=== PATIENT | male | born 1965 ===

== ENCOUNTER 2024-04-24 03:12 | Emergency (ER) | payer MEDICAID, SELFPAY ==
[2024-04-24] VITALS (33 sets, daily range): BP systolic 153–178; BP diastolic 90–120; PULSE 85–109; RESP 11–39; TEMP 36.8; O2SAT 94–99
--- NOTE | 2024-04-24 03:09 | W.ED.GENAD ---
Discharge Plan Disposition Condition: Stable Discharge Details Chief Complaint: GenMedical Clinical Impression: Bilateral leg weakness, Distal paresthesia, Areflexia Primary Care Provider: Unknown,Unknown ED Provider: Thomas Seay Home Meds and New Rx's Prescriptions: No Action No Known Home Meds [facility] General Mode of arrival: EMS. Date/Time Provider Initiated Documentation: 04/24/24 03:34. Limitations to Documentation: no limitations. Information obtained by: patient and RN notes reviewed. HPI Narrative: Patient presenting to ED with complaint of numbness and tingling as well as weakness mostly in his lower extremities. Patient reports something similar to this from [id number]. However, at that time he only experienced sensory changes, never weakness. Symptoms resolved and it was chalked up to neuropathy, no definite etiology. He has not seen a physician since that time. As far as he knows he has no significant past medical history. A couple of days before he started to have tingling in his hands. Since that time he has developed tingling in his upper extremities to about the elbows. He developed tingling and now has decreased sensation in his lower extremities up to his knees. Over the last few days he is developed weakness more prominent in his lower extremities than his upper extremities. He is also reporting numbness involving the head of the penis, decreased urine strength, decreased ability to push to have a bowel movement. He has had 4 falls without injury due to leg weakness. Left leg is weaker than right leg. 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 He has also noticed truncal weakness and is unable to get himself up from the stretcher to a sitting position without using his arms. He denies any headache or neck pain. He does have midthoracic spine pain which began around the same time as the tingling in his hands. He denies chest pain, shortness of breath, abdominal pain, vomiting. He has had no fever or cough. Denies any type of URI symptoms or viral symptoms in the last month. Related Data Home Medications ?Medication ?Instructions ?Recorded ?Confirmed Unknown [No Known Home Meds] 11/06/14 04/24/24 Allergies Allergy/AdvReac Type Severity Reaction Status Date / Time acetaminophen (From Tylenol) AdvReac Intermediate shakes Verified 04/24/24 03:29 Review of Systems Narrative: per HPI Exam Narrative Exam Narrative: Const: Thin male in NAD. VS per triage. HEENT: NC/AT. Normal facial exam. Neck: Supple. Trachea midline. Normal ROM. No midline posterior tenderness. Lungs: Normal respiratory effort. Lungs are clear. Cor: RRR without murmur. Good distal pulses. GI: Soft/ND/NT. Back: Tender mid thoracic spine. Neuro: A+O x 3. Normal speech, mentation. Cranial nerves II - XII grossly intact. Decrease sensation distal LE. Paresthesias distal upper extremities. Strong plantarflexion bilaterally. Weak dorsi flexion bilaterally. Strong knee extension bilaterally. Very weak knee flexion bilaterally. Weak hip flexion. Unable to sit up on his own, must use upper extremities to do so. Gait not tested. Left leg does seem more involved than right. Bilateral upper extremities with symmetric very mild weakness. Ext: No C/C/E. Feet cold but pulse present. Medical Decision Making Patient presenting to ED with about a weeks worth of progressive neurologic symptoms that are mostly affecting the lower extremities, some mild changes to the upper extremities. He has significant weakness in the hip flexes, knee flexors, ankle flexes. Extensor muscles appear to be pretty normal. Sensation is decreased but not absent in the distal lower extremities. Feet are very cold but pulses are present. Upper extremities have paresthesias distally and some mild symmetric weakness only noted on testing. He has mid thoracic pain and tenderness. No injuries and pain present prior to any of his falls. Differential includes spinal lesion, GBS, autoimmune process. Will obtain laboratory studies and CT of the spine. Patient likely will require transfer to tertiary care for further evaluation and management given progression of symptoms. 06:00 - Patient's labs are unremarkable. He has a normal white count and hemoglobin, normal chemistries, kidney function, liver function, TSH. Bladder scan with 130 mL of urine present. CT scan of the spine with no acute fracture, significant degenerative change, no overt lesions or masses. I still suspect that this may be a spinal process. Definitely involve lower extremities much more so than the upper extremities. Also seems to affect the flexor muscle groups as opposed to extensor. Will ask for telemetry neurology consult from [facility] for further insight and recommendations. 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 I had not checked patient reflexes but after discussion with neurology patient found to be areflexic. After discussion with neurology decision to transfer to higher level of care is felt best for the patient. I have placed a call to [facility]. Both neurology and myself have had discussion regarding probable diagnosis and need for transfer with the patient. 08:00 - Patient remains stable. Waiting for call back from [facility]. Will sign out to oncoming ED physician pending callback. If [facility] unable to accept will need to continue calls to surrounding tertiary care facilities. Lab Data Lab results reviewed: Yes I reviewed the patient's lab results. Lab results narrative: see MDM Quality:SDOH Health Related Social Needs: Health related social needs housing instability, housed, with risk of homelessness(Z59.811), inadequate housing(Z59.1) PFSH All Active Problems (Updated 04/24/24 @ 08:00 by Thomas Seay MD) Areflexia (Acute) Distal paresthesia (Acute) Bilateral leg weakness (Acute) Family History Father , Heart failure at age 68. Heart disease Social History Smoking/Tobacco Use Status: Former Tobacco Use Smoking risk assessment performed?: Yes Alcohol Intake: current Drug use: Never Substance use type: does not use
[2024-04-24 03:50] LABS: Abs Immature Grans 0.01 10^3/uL (0.0-0.06); Absolute Basophil Count 0.02 10^3/uL (0.0-0.2); Absolute Eosinophil Count 0.01 10^3/uL (0.0-0.7); Absolute Lymphocyte Count 1.09 10^3/uL (1.2-3.4); Absolute Monocyte Count 0.71 10^3/uL (0.1-0.8); Absolute Neutrophil Count 4.25 10^3/uL (1.2-6.7); Basophils % 0.3 %; Eosinophils % 0.2 %; HCT 47.5 % (40.0-50.0); HGB 15.8 g/dL (13.5-17.5); Immature Grans % 0.2 %; Lymphocytes % 17.9 %; MCH 29.8 pg (27.0-33.0); MCHC 33.3 % (32.0-36.0); MCV 90 fL (80-95); MPV 11.2 fL (8.0-11.0); Monocytes % 11.7 %; Neutrophils % 69.7 %; Platelet Count 218 10^3/uL (130-400); RDW 12.1 % (11.8-14.1); RDW-SD 39.8 fL; WBC 6.09 10^3/uL (4.4-10.8)
[2024-04-24 04:11] LABS: ALT 26 U/L (16-63); AST 28 U/L (15-37); Albumin 4.3 g/dL (3.4-5.0); Alkaline Phosphatase 101 U/L (46-116); Anion Gap 7.7 mmol/L (3-11); BUN 10 mg/dL (7-18); Bilirubin, Total 0.92 mg/dL (0.2-1.0); CO2 29.3 mmol/L (21.0-32.0); CREATININE 0.8 mg/dL (0.70-1.30); Calcium 9.5 mg/dL (8.5-10.1); Chloride 103 mmol/L (98-107); Estimated GFR 100.69 (mL/min/1.73m2); Glucose 97 mg/dL (74-106); Potassium 3.6 mmol/L (3.5-5.1); Sodium 140 mmol/L (136-145); TSH (W/Ref FT4) 1.14 uIU/mL (0.36-3.74); Total Protein 8.5 g/dL (6.4-8.2)
--- NOTE | 2024-04-24 04:16 | DI.CT_ITS ---
Exam(s) CT CERVICAL SPINE WO EXAM: CT CERVICAL SPINE WO CLINICAL HISTORY: numbness/weakness BLE, tingling BUE. TECHNIQUE: Imaging Protocol: Axial computed tomography images with coronal and sagittal reformatted images were created and reviewed CONTRAST MATERIAL: Noncontrast COMPARISON: No exams were available for comparison FINDINGS: Bones: No fracture or dislocations are seen. The alignment of the cervical spine is normal including the cervicovertebral junction and cervicothoracic junction. Mild narrowing of the C5-6 disc space. Moderate to severe narrowing of the C6-7 disc space. There a re degenerative disc changes and facet degenerative changes causing bilateral neural foraminal narrow ing at C5-6 and C6-7. Soft Tissues: The soft tissues of the neck are unremarkable. No large disk herniations are identified . The visualized portions of the lung apices are clear. No pneumothorax is seen. IMPRESSION: Bilateral foraminal narrowing C5-6 C6-7 secondary to degenerative facet and disc changes. RADIATION DOSE DELIVERED: Total DLP DATA REPOSITORY: All CT scans at this facility are submitted to the National Radiology Data Registry (NRDR) Dose Index Registry (DIR) with the [employer] ([employer]). RADIATION OPTIMIZATION: All CT scans at this facility use at least one of these dose optimization te chniques: automated exposure control; mA and/or kV adjustment per patient size (includes targeted exa ms where dose is matched to clinical indication); or iterative reconstruction.
--- NOTE | 2024-04-24 04:18 | DI.CT_ITS ---
Exam(s) CT THORACIC LUMBAR SPINE WO EXAM: CT THORACIC LUMBAR SPINE WO CLINICAL HISTORY: mid back pain, numbness/weakness BLE, tingling BUE. TECHNIQUE: Imaging Protocol: Axial, coronal and sagittal images of the thoracic and lumbar spine wer e reconstructed utilizing bone and soft tissue algorithm. COMPARISON: CT LUMBAR SPINE WITHOUT CONTRAST from 11/06/2014 FINDINGS: Thoracic spine: Bones: No acute fractures are seen. The alignment of the spine is normal including the cervicothora cic junction. Minimal degenerative changes. No central canal stenosis. Soft tissues: The soft tissues of the chest are unremarkable. No large disk herniations are identifie d. Lumbar spine: Bones: No acute fracture is identified. Minimal disc bulging at L4-5 and L5-S1. No central canal s tenosis. Question mild bilateral neural foraminal narrowing at L4-5. Alignment: Normal. Soft tissues: There is no large disc herniation. No paraspinal hematoma. Bilateral simple renal cys ts. No follow-up recommended. Appendix appears normal. IMPRESSION: No acute abnormality of the thoracic or lumbar spine. Mild degenerative disc changes L4-5. RADIATION DOSE DELIVERED: Total DLP DATA REPOSITORY: All CT scans at this facility are submitted to the National Radiology Data Registry (NRDR) Dose Index Registry (DIR) with the [employer] (ACR). RADIATION OPTIMIZATION: All CT scans at this facility use at least one of these dose optimization te chniques: automated exposure control; mA and/or kV adjustment per patient size (includes targeted exa ms where dose is matched to clinical indication); or iterative reconstruction.
--- NOTE | 2024-04-24 05:40 | DI.VRAD_ITS ---
PROCEDURE INFORMATION: Exam: CT Cervical Spine Without Contrast Exam date and time: 04/24/2024 3:50 AM Age: 59 years old Clinical indication: Other: Numbness/weakness ble, tingling bue TECHNIQUE: Imaging protocol: Computed tomography of the cervical spine without contrast. COMPARISON: No relevant prior studies available. FINDINGS: Bones: No acute fracture. There is multilevel degenerative disc disease and bilateral uncovertebral and facet arthropathy causing bilateral neural foraminal narrowing most prominent at C5-C7. No significant spinal canal stenosis. Lungs: Lung apices are normal. Soft tissues: Unremarkable. IMPRESSION: No acute fracture. Multilevel degenerative changes as described. Dictated and Authenticated by: Sandra May MD. Ordering:ARCHIE Guzman MD
--- NOTE | 2024-04-24 05:48 | DI.VRAD_ITS ---
PROCEDURE INFORMATION: Exam: CT Thoracic Spine Without Contrast Exam date and time: 04/24/2024 4:03 AM Age: 59 years old Clinical indication: Mid back pain, numbness/weakness ble, tingling bue TECHNIQUE: Imaging protocol: Computed tomography of the thoracic spine without contrast. COMPARISON: CT CERVICAL SPINE WO 04/24/2024 3:50 AM FINDINGS: Bones/joints: No acute fracture. There is slight exaggerationof the thoracic kyphosis. No significant disc bulge or herniation. No severe spinal canal stenosis. No significant neural foraminal narrowing. Soft tissues: Unremarkable. IMPRESSION: No acute fracture or listhesis. PROCEDURE INFORMATION: Exam: CT Lumbar Spine Without Contrast Exam date and time: 04/24/2024 4:03 AM Age: 59 years old Clinical indication: Mid back pain, numbness/weakness ble, tingling bue TECHNIQUE: Imaging protocol: Computed tomography of the lumbar spine without contrast. COMPARISON: No relevant prior studies available. FINDINGS: Bones/joints: No acute fracture. Normal alignment. mild disc bulging noted at l4-l5 causing mild bilateral neural foraminal narrowing. No severe spinal canal stenosis. Kidneys and ureters: Bilateral renal cysts are partially visualized. Soft tissues: Unremarkable. IMPRESSION: No acute fracture. Mild degenerative changes as described. Dictated and Authenticated by: Sandra May MD. Ordering:ARCHIE Guzman MD
--- NOTE | 2024-04-24 08:48 | W.EDPROG ---
Date of service: 04/24/24 Time of Service: 08:48 Medical Decision Making Care signed out by Dr. Seay with plan to follow-up with conversation with neurologist at [facility] regarding transfer. I spoke with Dr. Rutherford, on-call neurology at [facility], discussed ED presentation course, she reviewed teleneuro note, she will accept the patient in transfer to the emergency department at [facility]. Patient provided verbal consent to transfer. Lab Data Lab results reviewed: Yes I reviewed the patient's lab results. Labs: Laboratory Tests Range/Units 04/24/24 03:39 WBC (4.4-10.8) 10^3/uL 6.09 RBC (4.36-5.78) 10^6/uL 5.30 Hgb (13.5-17.5) g/dL 15.8 Hct (40.0-50.0) % 47.5 MCV (80-95) fL 90 MCH (27.0-33.0) pg 29.8 MCHC (32.0-36.0) % 33.3 RDW (11.8-14.1) % 12.1 Plt Count (130-400) 10^3/uL 218 MPV (8.0-11.0) fL 11.2 H Immature Gran % % 0.2 Neutrophils % % 69.7 Lymphocytes % % 17.9 Monocytes % % 11.7 Eosinophils % % 0.2 Basophils % % 0.3 Nucleated RBC % (0.0-0.3) % 0.0 Absolute Neutrophils (1.2-6.7) 10^3/uL 4.25 Absolute Lymphocytes (1.2-3.4) 10^3/uL 1.09 L Absolute Monocytes (0.1-0.8) 10^3/uL 0.71 Absolute Eosinophils (0.0-0.7) 10^3/uL 0.01 Absolute Basophils (0.0-0.2) 10^3/uL 0.02 Sodium (136-145) mmol/L 140 Potassium (3.5-5.1) mmol/L 3.6 Chloride (98-107) mmol/L 103 Carbon Dioxide (21.0-32.0) mmol/L 29.3 Anion Gap (3-11) mmol/L 7.7 BUN (7-18) mg/dL 10 Creatinine (0.70-1.30) mg/dL 0.8 Est GFR (CKD-EPI 2020) (mL/min/1.73m2) 100.69 Glucose (74-106) mg/dL 97 Calcium (8.5-10.1) mg/dL 9.5 Magnesium (1.8-2.4) mg/dL 2.0 Total Bilirubin (0.2-1.0) mg/dL 0.92 AST (15-37) U/L 28 ALT (16-63) U/L 26 Alkaline Phosphatase (46-116) U/L 101 Total Protein (6.4-8.2) g/dL 8.5 H Albumin (3.4-5.0) g/dL 4.3 TSH (0.36-3.74) uIU/mL 1.14 Quality:SDOH Health Related Social Needs: Health related social needs housing instability, housed, with risk of homelessness(Z59.811), inadequate housing(Z59.1) Discharge Plan Disposition Patient Disposition: Transfer-Acute Inpatient Care Specific Acute In Facility: [facility] Condition: Stable Discharge Details Chief Complaint: GenMedical Clinical Impression: Bilateral leg weakness, Distal paresthesia, Areflexia Primary Care Provider: Unknown,Unknown ED Provider: Thomas Seay Home Meds and New Rx's Prescriptions: No Action No Known Home Meds
== END 2024-04-24 09:33 | disposition short-term general hospital (02) ==
PROVIDERS: Emergency Medicine; Emergency Provider Student in an Organized Health Care Education/Training Program
DX: R29.2 Abnormal reflex (principal); R20.2 Paresthesia of skin; M62.81 Muscle weakness (generalized)
CPT/HCPCS: 00123; 36415; 80053; 99284; 72125; 72128; 72131; 83735; 84443; 85025

== ENCOUNTER 2025-02-14 19:30 | Outpatient (REF) | payer MEDICAID, SELFPAY ==
[2025-02-14 18:42] LABS: Hemoglobin A1C 5.9 % (<5.7)
[2025-02-14 18:43] LABS: Calculated LDL 114 mg/dL (<100); Cholesterol 185 mg/dL (<200); HDL Cholesterol 63 mg/dL (>or=40); Triglyceride 41 mg/dL (<150)
[2025-02-18 18:19] LABS: B. miyamotoi PCR Negative (Negative); Babesia divergens/MO-1 Negative (Negative); Ehrlichia muris eauclairensis Negative (Negative)
== END 2025-02-14 19:31 | disposition home or self-care (01) ==
LOC: NCHCN 19:30
PROVIDERS: PCP Family Medicine; Visit Provider Family Medicine
DX: Z13.220 Encounter for screening for lipoid disorders (principal); S60.861A Insect bite (nonvenomous) of right wrist, initial encounter; W57.XXXA Bitten or stung by nonvenomous insect and other nonvenomous arthropods, initial encounter; Z13.1 Encounter for screening for diabetes mellitus
CPT/HCPCS: 80061; 87798; 83036